=== PATIENT | male | born 1980 | race Caucasian/White ===

== ENCOUNTER 2021-03-04 20:14 | Emergency (ER) | payer OTHER ==
[2021-03-04 23:24] LABS: BASOPHIL 0.3 % (0-2); EOSINOPHIL 0 % (0-5); HCT 43.7 % (42.0-52.0); HGB 15.6 g/dl (13.2-18.0); LYMPHOCYTE 24.8 % (15-48); MCH 30.8 pg (25.0-31.0); MCHC 35.7 g/dL (32.0-36.0); MCV 86.2 fL (78.0-100.0); MONOCYTE 9.5 % (0-12); MPV 10.7 fL (6.0-9.5); NEUTROPHIL 65.1 % (41-80); NRBC 0; PLT 145 K/uL (150-400); RBC 5.07 M/uL (4.70-6.00); RDW 11.9 % (11.5-14.0); WBC 3.9 K/uL (4.0-10.5)
[2021-03-04 23:27] LABS: ALBUMIN 3.8 g/dL (3.4-5.0); BILIRUBIN - TOTAL 0.7 mg/dL (0.2-1.0); BUN/CREAT RATIO (CALC) 14.6 RATIO; CREATININE 0.96 mg/dL (0.67-1.17); POTASSIUM 3.8 mmol/L (3.5-5.1); TOTAL PROTEIN 7.8 g/dL (6.4-8.2)
[2021-03-04 23:30] LABS: LACTIC ACID 1.4 mmol/L (0.4-1.9)
[2021-03-04 23:56] LABS: INFLUENZA A NAA NEGATIVE (NEGATIVE)
[2021-03-05 00:03] LABS: CORONAVIRUS 2019 SARS-COV-2 POSITIVE (NEGATIVE)
[2021-03-05 01:28] LABS: BILIRUBIN NEGATIVE (NEGATIVE); BLOOD NEGATIVE Ery/uL (NEGATIVE); CLARITY CLEAR (CLEAR); COLOR YELLOW (YELLOW); GLUCOSE (U) NORMAL (NORMAL); LEUKOCYTES NEGATIVE Leu/uL (NEGATIVE); NITRITE NEGATIVE (NEGATIVE); PROTEIN 1+ mg/dL (NEGATIVE); pH 6.5 (5.0-9.0)
[2021-03-05 01:37] LABS: MUCOUS TRACE; URINARY WBC RARE
== END 2021-03-05 05:45 | disposition home or self-care (01) ==
LOC: FER 20:14
PROVIDERS: Emergency Medicine
DX: U07.1 COVID-19 (principal)
CPT/HCPCS: 36415; 71045; 71046; 80053; 81001; 83605; 85025; 87040; J2405; J7030; U0002